=== PATIENT | male | born 1985 | race Caucasian/White ===

== ENCOUNTER 2020-10-11 10:15 | Day surgery (SDC) | payer BC ==
[~2020-10-11 10:15] MED LIST: Bupivacaine 0.5% 30 ML SDV ONE; Lidocaine 2% 20 ML MDV ONE
[2020-10-11] MEDS ORDERED: fentaNYL 100 MCG/2 ML SDV ONE (10:52)
[2020-10-11] MEDS ORDERED: Midazolam 1 MG/ML 2 ML SDV ONE (10:52)
[2020-10-11] MEDS ORDERED: Propofol 200 MG/20 ML SDV ONE ×2 (10:52→12:27)
[2020-10-11] MEDS ORDERED: Lactated Ringers 1,000 ML IV SCH (11:00)
[2020-10-11] MEDS ORDERED: ceFAZolin 2 GM in Premix Bag 1 BAG IV ONE (12:00)
--- NOTE | 2020-10-11 14:39 | OR ---
DATE OF PROCEDURE: 10/11/2020 SURGEON: Rom Westbrook DPM HALL DIRECTOR: None. PREOPERATIVE DIAGNOSIS: Mass, plantar aspect of the left great toe. POSTOPERATIVE DIAGNOSIS: Mass, plantar aspect of the left great toe. PROCEDURE: Excision of mass, plantar aspect, left great toe. ANESTHESIA: Local with IV sedation. HEMOSTASIS: Obtained with an ankle tourniquet on the left ankle at 250 mmHg. ESTIMATED BLOOD LOSS: 5 mL. MATERIALS: None. INJECTABLES: A total of 23 mL of Marcaine 0.5% plain were injected. PATHOLOGY: Soft tissue mass sent. CONDITION: Stable. INDICATIONS FOR SURGERY: Painful mass, subcutaneous soft tissue mass on the plantar aspect of the left great toe. PROCEDURE IN DETAIL: The patient was brought to the operating room, placed on the operating table in a supine position. Following IV sedation, the left great toe was anesthetized with a total of 20 mL of Marcaine 0.5% plain. The left foot was then scrubbed, prepped, and draped in the usual aseptic manner and raised to 60 degrees for hemostasis and exsanguinated using an Esmarch bandage. Tourniquet was inflated. Foot was lowered to table. Skin incision was made on the medial plantar aspect of the left great toe. Incisions were deepened through subcutaneous tissues with care taken to identify and retract all vital neurovascular structures. The soft tissue mass was located in the subcutaneous layer and was carefully dissected out. We did come through the plantar aspect of the skin in 2 spots on the plantar aspect of the toe while removing the mass as it was very close to the layer of the skin. We then removed the mass in toto and palpated to make sure it was completely removed. We then flushed out the incision with copious amounts of sterile saline and closed subcutaneously with 3-0 Vicryl and skin closure with 3-0 nylon in horizontal mattress and simple stitches. We then dressed the toe with Xeroform, 4x4s, Kerlix, and Coban, and sent the mass for pathological examination. The patient was brought to the recovery room with vital signs stable and vascular status intact to both feet. The patient was given instructions to rest and elevate the left foot, maintain strict nonweightbearing, and return to clinic for followup in 1 week at which time he will be re-evaluated. We told the patient to stay off the great toe for at least 2 weeks and keep it dry. We told the patient to go to the emergency room immediately if he has any nausea, vomiting, fever, chills, chest pain, calf pain, or difficulty breathing. Rom Westbrook DPM /[id number]
== END 2020-10-11 14:30 | disposition home or self-care (01) ==
LOC: JP.SDS 10:15
PROVIDERS: ATTEND Podiatrist Foot & Ankle Surgery
DX: L72.0 Epidermal cyst (principal); E66.9 Obesity, unspecified; F17.210 Nicotine dependence, cigarettes, uncomplicated; Z68.32 Body mass index [BMI] 32.0-32.9, adult; Z79.899 Other long term (current) drug therapy
CPT/HCPCS: 88304; J0690; J2250; J2704; J3010; J3490; J7120